=== PATIENT | male | born 2000 | race Caucasian/White ===

== ENCOUNTER 2018-11-13 06:12 | Emergency (ER) | payer OTHER ==
[~2018-11-13] VITALS: Ht 180.3 cm; Wt 86.2 kg
--- NOTE | 2018-11-13 06:12 | NUR ---
PT AMOR CADENA TO ER BED 2
[2018-11-13 06:13] VITALS: BP 121/75
--- NOTE | 2018-11-13 06:18 | NUR ---
PT TO ED BIBA FOR C/O RT ARM PAIN S/P "A BIG PALLET OF PRODUCE FELL ONTO MY ARM AND I COULDN'T GET IT OFF". NO OBVIOUS DEFORMITY. CMS INTACT. FULL ROM PRESENT. MILD SWELLING NOTED TO RT FOREARM. PT PLACED INTO BED, PENDING MD HAZEL.
--- NOTE | 2018-11-13 07:12 | NUR ---
REPORT TO GERALDINE WILLOUGHBY FOR CONTINUATION OF CARE.
--- NOTE | 2018-11-13 07:35 | NUR ---
DR QUIGLEY AT BEDSIDE FOR PT EVALUATION
[2018-11-13] MEDS ORDERED: IBUPROFEN 600 MG TAB PO ONE (07:40)
--- NOTE | 2018-11-13 08:24 | NUR ---
PT HAS A SLING ON ORDERED. PT STATES NO NUMBNESS OR TINGLING TO R ARM. ABLE TO MOVE FINGERS OF R HAND. CAP REFILL < 3 SECS.
[2018-11-13 08:35] VITALS: BP 115/70
== END 2018-11-13 08:35 | disposition home or self-care (01) ==
LOC: MED 06:12
DX: S53.401A Unspecified sprain of right elbow, initial encounter (principal); M25.531 Pain in right wrist; X50.9XXA Other and unspecified overexertion or strenuous movements or postures, initial encounter; Y93.89 Activity, other specified; Y92.512 Supermarket, store or market as the place of occurrence of the external cause; Y99.0 Civilian activity done for income or pay
CPT/HCPCS: 73080; 73090; 99283; Q0092

== ENCOUNTER 2018-11-18 11:15 | Emergency (ER) | payer OTHER ==
[~2018-11-18] VITALS: Ht 180.3 cm; Wt 64.0 kg
[2018-11-18 11:26] VITALS: BP 110/72
--- NOTE | 2018-11-18 11:33 | NUR ---
PT AMB TO BED 7
--- NOTE | 2018-11-18 11:55 | NUR ---
26 YO M BIB SELF FOR RE EVALUATION C/O RIGHT ELBOW PAIN S/P FALL AT WORK X 6 DAYS. SEEN HERE & GOT X RAY: NO FRACTURE. PT C/O R ELBOW PAIN & MOTRIN DOES NOT HELP. PT STATES" I NEED STRONGER PAIN MED, MOTRIN IS NOT RELIEVING MY PAIN". AWARE.
[2018-11-18 12:03] VITALS: BP 118/75
--- NOTE | 2018-11-18 12:03 | NUR ---
Note milyone in EDM - 11/18/18 at 1204 by [email or web address] Patient discharged with v/s stable. Written and verbal after care instructions given and explained. Patient alert, oriented and verbalized understanding of instructions. Ambulatory with steady gait. All questions addressed prior to discharge. ID band removed. Patient advised to follow up with PMD. Rx of [place]CO given. Patient educated on indication of medication including possible reaction and side effects. Opportunity to ask questions provided and answered.
--- NOTE | 2018-11-18 12:03 | NUR ---
Patient discharged with v/s stable. Written and verbal after care instructions given and explained. Patient alert, oriented and verbalized understanding of instructions. Ambulatory with steady gait. All questions addressed prior to discharge. Patient advised to follow up with PMD. Rx of [place] given. Patient educated on indication of medication including possible reaction and side effects. Opportunity to ask questions provided and answered.
== END 2018-11-18 12:03 | disposition home or self-care (01) ==
LOC: MED 11:15
DX: M25.521 Pain in right elbow (principal); W20.8XXA Other cause of strike by thrown, projected or falling object, initial encounter; Y93.89 Activity, other specified; Y92.89 Other specified places as the place of occurrence of the external cause; Y99.0 Civilian activity done for income or pay
CPT/HCPCS: 99283